=== PATIENT | male | born 1975 | race Caucasian/White ===

== ENCOUNTER 2017-01-12 19:14 | Emergency (ER) | payer SELFPAY ==
[~2017-01-12] VITALS: Ht 180.3 cm; Wt 73.0 kg
[2017-01-12] MEDS ORDERED: KETOROLAC 60MG/2ML VIAL IM ONE (20:45)
[2017-01-12] MEDS ORDERED: ACETAMINOPHEN WITH CODEINE 300/30MG TABLET PO ONE (20:45)
[2017-01-12 22:03] VITALS: BP 118/75
== END 2017-01-12 22:05 | disposition home or self-care (01) ==
LOC: ER 19:24
DX: S89.91XA Unspecified injury of right lower leg, initial encounter (principal); W01.0XXA Fall on same level from slipping, tripping and stumbling without subsequent striking against object, initial encounter; Y93.89 Activity, other specified; Y92.89 Other specified places as the place of occurrence of the external cause; Y99.8 Other external cause status
CPT/HCPCS: 73562; 96372; 99284; J1885; L1830